=== PATIENT | female | born 1980 | race Hispanic/Latino ===

== ENCOUNTER 2016-04-14 18:32 | Emergency (ER) | payer MEDICAID, OTHER ==
[2016-04-14 19:17] LABS: Urine Drugs of Abuse Note Disclamer
[2016-04-14 19:32] LABS: Bacteria,Urine 1+ /HPF (Negative); Bilirubin,Urine NEG (Negative); Blood,Urine NEG (Negative); Ketones,Urine TR mg/dL (Negative); Leukocyte Esterase,Urine NEG (Negative); Mucus,Urine FEW /HPF; Nitrite,Urine NEG (Negative); Protein,Urine <15 mg/dL mg/dL (Negative)
[2016-04-14 19:42] LABS: Basophils % (Auto) 0.3 % (0.0-1.8); Eosinophils % (Auto) 1.7 % (0.0-4.3); Hemoglobin 12.6 gm/dl (10.1-14.3); Mean Corpuscular HGB Conc 33 % (30-34); Mean Corpuscular Hemoglobin 32 pg (28-32); Mean Corpuscular Volume 96 fl (79-97); Platelet Count 210 K/mm3 (140-440); Red Blood Count 3.97 M/mm3 (3.65-5.03); White Blood Count 12.1 K/mm3 (4.5-11.0)
[2016-04-14 19:59] LABS: Anion Gap 21 mmol/L; BUN/Creatinine Ratio 18.57; Blood Urea Nitrogen 13 mg/dL (7-17); Calcium 8.7 mg/dL (8.4-10.2); Carbon Dioxide 22 mmol/L (22-30); Chloride 99.8 mmol/L (98-107); Glucose 97 mg/dL (65-100); Potassium 3.7 mmol/L (3.6-5.0); Sodium 139 mmol/L (137-145)
[2016-04-14] MEDS ORDERED: NACL 0.9% 1000 ML 1,000 ML IV ONE (20:02)
[2016-04-14] MEDS ORDERED: TYLENOL PO PRN (20:48)
[2016-04-14] MEDS ORDERED: ALUM-MAG HYDROX-SIMETH 200-200-20MG/5ML PO PRN (20:48)
[2016-04-14] MEDS ORDERED: MILK OF MAGNESIA PO PRN (20:48)
--- NOTE | 2016-04-14 20:53 | Emergency Department Report ---
HPI - General Chief Complaint: Overdose Time Seen by Provider: 04/14/16 19:42 - HPI HPI: The patient is a 36-year-old female who presents for evaluation of mental health. The patient reports feeling progressive, constant, and severe sadness for the past one week, climaxing today. She reports suicidal ideation for the past one to 2 days, and admits to consuming approximately 15-20 Ativan tablets at 8 AM this morning, nearly 12 hours prior to my evaluation. The patient currently complains of mild to moderate drowsiness, constant since taking the excess dose of Ativan. The patient denies fever, headache, unexplained weight loss or weight gain, heat or cold intolerance, skin, hair, or nail changes, neuro deficits, homicidal ideations, or auditory or visual hallucinations. ED Past Medical Hx - Past Medical History Hx Psychiatric Treatment: Yes (BIPOLAR ; MANIC DEPRESSION) - Surgical History Past Surgical History?: No - Social History Smoking Status: Current Every Day Smoker Substance Use Type: Alcohol, Marijuana, Prescribed - Medications Home Medications: Home Medications Medication Instructions Recorded Confirmed Last Taken Type Citalopram [celeXA] 20 mg PO QHS 04/14/16 04/14/16 Unknown History LORazepam [Ativan] 0.5 mg PO Q6H 04/14/16 04/14/16 Unknown History Quetiapine Fumarate [QUEtiapine 300 mg PO QHS 04/14/16 04/14/16 Unknown History Fumarate] lamoTRIgine [LaMICtal] 100 mg PO BID 04/14/16 04/14/16 Unknown History ED Review of Systems ROS: Stated complaint: SUICIDE ATTEMPT Other details as noted in HPI Constitutional: denies: fever ENT: denies: throat or neck pain Respiratory: denies: cough, shortness of breath Cardiovascular: denies: chest pain Endocrine: denies unexplained weight loss or gain Gastrointestinal: denies: abdominal pain, nausea Genitourinary: denies: dysuria Musculoskeletal: denies: leg swelling Skin: denies: rash Neurological: reports drowziness denies: headache Hematological/Lymphatic: denies: easy bleeding or easy bruising Psych: reports sadness/SI Physical Exam - Physical Exam Vital Signs: Vital Signs 04/14/16 04/14/16 18:40 19:40 Temperature 98.3 F 98.4 F Pulse Rate 92 H 89 Respiratory 17 16 Rate Blood Pressure 114/73 Blood Pressure 107/64 [Left] O2 Sat by Pulse 98 99 Oximetry Physical Exam: General: well-nourished, well-developed, no acute distress Head: Normocephalic, atraumatic Eyes: normal sclera ENT: Mucous membranes are pink and moist Neck: trachea midline, neck supple, No neck stiffness, no cervical adenopathy Respiratory: Breath sounds equal bilaterally, no wheezing, rales, or rhonchi Cardio: S1 and S2 present, no murmurs, rubs, gallops, capillary refill is brisk Abdomen: Normoactive bowel sounds, soft abdomen, no rigidity, no guarding or rebound tenderness Musc: No pitting edema Skin: No rash Neuro: Alert oriented 3, mild drowsiness present, no facial drooping, delayed speech, no sensation or motor deficits Psych: Patient tearful, flat affect, poor insight, positive suicidal ideation ED Course Vital Signs 04/14/16 04/14/16 18:40 19:40 Temperature 98.3 F 98.4 F Pulse Rate 92 H 89 Respiratory 17 16 Rate Blood Pressure 114/73 Blood Pressure 107/64 [Left] O2 Sat by Pulse 98 99 Oximetry ED Medical Decision Making - Lab Data Result diagrams: 04/14/16 19:25 04/14/16 19:25 - Medical Decision Making The patient was seen and examined by myself. The patient is placed on a platform man and continuous pulse ox. On initial evaluation, the patient was found to be in no distress. Labs are obtained. Lab results are grossly unremarkable. The patient is greater than 12 hours post ingestion of Ativan without any significant drowsiness remaining. The patient is medically clear. Mental health is consulted. Mental health evaluates the patient and agrees that the patient is at risk of harm to self. A 1013 is completed. The patient will be admitted to a psychiatric facility once bed placement is obtained. Critical care attestation.: If time is entered above; I have spent that time in minutes in the direct care of this critically ill patient, excluding procedure time. ED Disposition Clinical Impression: Suicidal ideation, Suicidal behavior Drug overdose, intentional Qualifiers: Encounter type: initial encounter Qualified Code(s): T50.902A - Poisoning by unspecified drugs, medicaments and biological substances, intentional self-harm , initial encounter Disposition: DC/TX PSY HOSP/PSY UNIT Is pt being admited?: No Does the pt Need Aspirin: No Condition: Stable Referrals: PRIMARY CARE, [Primary Care Provider] - 3-5 Days Time of Disposition: 20:39
[2016-04-15 11:34] VITALS: BP 111/66
== END 2016-04-15 11:42 ==
LOC: ED 18:32 → EEVIPCON 18:32 → ED 04-15 11:42
DX: T42.4X2A Poisoning by benzodiazepines, intentional self-harm, initial encounter (principal); F31.9 Bipolar disorder, unspecified; F17.200 Nicotine dependence, unspecified, uncomplicated; F12.10 Cannabis abuse, uncomplicated; Z79.899 Other long term (current) drug therapy; Y93.89 Activity, other specified; Y99.8 Other external cause status; Y92.89 Other specified places as the place of occurrence of the external cause
CPT/HCPCS: 36415; 80048; 80307; 81001; 81025; 85025; 96360; 99285; G0480; J7030; 80320